=== PATIENT | male | born 1950 | race Caucasian/White ===

== ENCOUNTER 2020-03-02 09:17 | Observation (INO) | payer MEDICARE ==
[~2020-03-02] VITALS: Ht 175.3 cm; Wt 87.3 kg
[2020-03-02 10:17] VITALS: BP 162/76
[2020-03-02] MEDS ORDERED: TRAM50TA2 PO (10:24)
[2020-03-02] MEDS ORDERED: CHLORHEXIDINE 15 ML UDC ONE (10:28)
[2020-03-02] MEDS ORDERED: GABAPENTIN 300 MG CAPSULE PO ONE (10:30)
[2020-03-02] MEDS ORDERED: ACETAMINOPHEN 500 MG TABLET PO ONE (10:30)
[2020-03-02] MEDS ORDERED: LACTATED RINGERS 1,000 ML IV SCH (10:30)
[2020-03-02] MEDS ORDERED: CHLORHEXIDINE 15 ML UDC MM ONE (10:30)
[2020-03-02] MEDS ORDERED: VANCOMYCIN PER PHARMACY MC ONE (10:30)
[2020-03-02] MEDS ORDERED: ACETAMINOPHEN 500 MG TABLET ONE (10:32)
[2020-03-02] MEDS ORDERED: GABAPENTIN 300 MG CAPSULE ONE (10:33)
[2020-03-02 10:37] LABS: BASOPHILS % (AUTO) 0 % (0-1); EOSINOPHILS % (AUTO) 3 % (1-7); LYMPHOCYTES % (AUTO) 12 % (22-44); MEAN CORPUSCULAR HEMOGLOBIN 31.2 pg (27.5-34.5); MEAN CORPUSCULAR HGB CONC 34.3 g/dL (33.2-36.2); MEAN PLATELET VOLUME 8.9 fL (7.4-10.4); MONOCYTES % (AUTO) 9 % (2-9); NEUTROPHILS % (AUTO) 75 % (42-75); PLATELET COUNT 162 x10^3/uL (130-400); RED BLOOD COUNT 5.04 x10^6/uL (4.38-5.82); RED CELL DISTRIBUTION WIDTH 12.8 % (9.4-14.8)
[2020-03-02 10:42] LABS: INTERNATIONAL NORMALIZED RATIO 0.95 (0.93-1.1); PROTHROMBIN TIME 10.1 Seconds (9.6-11.5)
[2020-03-02 10:44] LABS: ALANINE AMINOTRANSFERASE 26 U/L (12-78); ALBUMIN 3.7 g/dL (3.4-5.0); ANION GAP 4 mmol/L (5-15); CALCIUM 9.3 mg/dL (8.5-10.1); CHLORIDE 104 mmol/L (98-107); CREATININE 0.94 mg/dL (0.7-1.3)
[2020-03-02 10:47] LABS: ALKALINE PHOSPHATASE 43 U/L (45-117); BILIRUBIN,TOTAL 0.8 mg/dL (0.2-1.0); TOTAL PROTEIN 7.2 g/dL (6.4-8.2)
[2020-03-02] MEDS ORDERED: VANCOMYCIN 1,300 MG in SODIUM CHLORIDE 0.9% 250 ML IV ONE (11:00)
[2020-03-02 11:10] LABS: MD SCAN
[2020-03-02] MEDS ORDERED: DIPHENHYDRAMINE 50 MG/ML, 1ML IVPush PRN ×2 (11:30→14:00)
[2020-03-02] MEDS ORDERED: KETOROLAC 30 MG/1 ML IV SCH (11:30)
[2020-03-02] MEDS ORDERED: POLYETHYLENE GLYCOL 17 GM PACKET PO PRN (11:30)
[2020-03-02] MEDS ORDERED: MAGNESIUM HYDROXIDE 8%, 30ML UDC PO PRN (11:30)
[2020-03-02] MEDS ORDERED: POTASSIUM CHLORIDE 20 MEQ in D5%-0.45% NACL 1,000 ML IV SCH (11:30)
[2020-03-02] MEDS ORDERED: PROMETHAZINE 12.5 MG SUPP PR PRN (11:30)
[2020-03-02] MEDS ORDERED: TRANEXAMIC ACID 1,000 MG in SODIUM CHLORIDE 0.9% 100 ML IVPB ONE ×2 (11:30→15:00)
[2020-03-02] MEDS ORDERED: ONDANSETRON 2MG/ML, 2ML IVPush PRN ×2 (11:30→14:00)
[2020-03-02] MEDS ORDERED: DIPHENHYDRAMINE 50 MG CAPSULE PO PRN (11:30)
[2020-03-02] MEDS ORDERED: SENNA/DOCUSATE TABLET PO PRN (11:30)
[2020-03-02] MEDS ORDERED: ALUMINUM/MAG/SIMETHICONE 30 ML UDC PO PRN (11:30)
[2020-03-02] MEDS ORDERED: ONDANSETRON 4 MG TABLET PO PRN (11:30)
[2020-03-02] MEDS ORDERED: ACETAMINOPHEN 650 MG/20.3 ML UDC PO PRN (11:30)
[2020-03-02] MEDS ORDERED: OXYcodone IR 5MG TABLET PO PRN ×2 (11:30)
[2020-03-02] MEDS ORDERED: CEFAZOLIN PMX 1GM/50ML 50 ML IVPB SCH (11:30)
[2020-03-02] MEDS ORDERED: METOCLOPRAMIDE 5 MG/ML, 2ML IVPush PRN (11:30)
[2020-03-02] MEDS ORDERED: FENTANYL PF 250 MCG/5ML ONE (13:23)
[2020-03-02] MEDS ORDERED: MIDAZOLAM 1 MG/ML, 2ML ONE ×2 (13:23→13:26)
[2020-03-02] MEDS ORDERED: ROCURONIUM 10 MG/ML,10ML ONE (13:26)
[2020-03-02] MEDS ORDERED: NEOSTIGMINE 1 MG/ML, 10ML ONE (13:26)
[2020-03-02] MEDS ORDERED: DEXAMETHASONE 4 MG/ML, 1ML ONE (13:26)
[2020-03-02] MEDS ORDERED: GLYCOPYRROLATE 0.2MG/1ML, 5ML ONE (13:26)
[2020-03-02] MEDS ORDERED: ONDANSETRON 2MG/ML, 2ML ONE (13:26)
[2020-03-02] MEDS ORDERED: PROPOFOL 10 MG/ML, 20ML ONE (13:26)
[2020-03-02] MEDS ORDERED: EPHEDRINE 50 MG/ML, 1ML ONE (13:26)
[2020-03-02] MEDS ORDERED: CEFAZOLIN 1,000 MG ONE (13:26)
[2020-03-02] MEDS ORDERED: MEPERIDINE/PF 25MG/0.5ML IVPush PRN (14:00)
[2020-03-02] MEDS ORDERED: HYDROmorphone 1 MG/ML, 1ML INJ IVPush PRN (14:00)
[2020-03-02] MEDS ORDERED: PROMETHAZINE 25 MG/ML, 1ML IVPush PRN (14:00)
[2020-03-02] MEDS ORDERED: LABETALOL 5MG/ML, 20ML IV PRN (14:00)
[2020-03-02] MEDS ORDERED: hydrALAzine 20 MG/ML, 1ML IV PRN (14:00)
[2020-03-02] MEDS ORDERED: EPINEPHRINE 1 MG/ML, 1ML ONE (14:57)
[2020-03-02] MEDS ORDERED: ROPIvacaine/PF 0.2%, 20 ML ONE (14:57)
[2020-03-02] MEDS ORDERED: SODIUM CHLORIDE 0.9% 50 ML ONE (14:57)
[2020-03-02] MEDS ORDERED: VANCOMYCIN 1,000 MG ONE (14:57)
[2020-03-02] MEDS ORDERED: KETOROLAC 60 MG/2 ML ONE (14:57)
[2020-03-02] MEDS ORDERED: TRANEXAMIC ACID 100 MG/ML, 10ML ONE (14:59)
[2020-03-02] MEDS ORDERED: OXYcodone 5 MG/5 ML ORAL.SOL UDC ONE (15:02)
[2020-03-02] MEDS ORDERED: HYDROmorphone 1 MG/ML, 1ML INJ ONE (15:02)
[2020-03-02] MEDS ORDERED: FENTANYL PF 100 MCG/2ML ONE (15:02)
[2020-03-02] MEDS: FENTANYL PF 100 MCG/2ML IV PRN ×2 (15:04→15:25)
[2020-03-02] MEDS: OXYcodone 5 MG/5 ML ORAL.SOL UDC PO PRN ×2 (15:10→15:30)
[2020-03-02] MEDS ORDERED: KETOROLAC 30 MG/1 ML ONE (15:32)
[2020-03-02] MEDS: HYDROmorphone 1 MG/ML, 1ML INJ IVPush PRN ×2 (15:38→15:43)
[2020-03-02] MEDS ORDERED: TAMSULOSIN 0.4 MG CAP.ER.24H PO ONE (19:00)
[2020-03-02] MEDS ORDERED: ASPIRIN 81 MG TABLET EC PO SCH (21:00)
[2020-03-02] MEDS ORDERED: DOCUSATE 100 MG CAPSULE PO SCH (21:00)
[2020-03-03] MEDS ORDERED: TAMSULOSIN 0.4 MG CAP.ER.24H PO SCH (09:00)
[2020-03-03] MEDS ORDERED: VANCOMYCIN PMX 1GM/200ML 200 ML IVPB ONE (11:30)
[2020-03-03] MEDS ORDERED: DEXAMETHASONE 4 MG/ML, 1ML IVPush ONE (11:30)
== END 2020-03-02 19:55 | disposition home or self-care (01) ==
LOC: INTOOBSV 09:17 → ORIP 09:17
PROVIDERS: ADMIT Orthopaedic Surgery; ATTEND Orthopaedic Surgery
DX: S72.012A Unspecified intracapsular fracture of left femur, initial encounter for closed fracture (principal); Z20.822 Contact with and (suspected) exposure to COVID-19; I10 Essential (primary) hypertension; Z79.899 Other long term (current) drug therapy; Z87.891 Personal history of nicotine dependence; W00.2XXA Other fall from one level to another due to ice and snow, initial encounter; Y93.01 Activity, walking, marching and hiking; Y92.828 Other wilderness area as the place of occurrence of the external cause
CPT/HCPCS: 27130; 36415; 72170; 80053; 83036; 85025; 85610; 85730; 86850; 86900; 87081; 87147; 87635; 87806; 93005; 97162; C1713; C1776; G0378; J0171; J0690; J1100; J1170; J1885; J2250; J2405; J2704; J2710; J2795; J3010; J3370; J7050; J7120; G0475